=== PATIENT | male | born 1985 | race Caucasian/White ===

== ENCOUNTER 2017-07-15 20:19 | Inpatient (IN) | payer OTHER ==
[~2017-07-15] VITALS: Ht 190.5 cm; Wt 124.0 kg
--- NOTE | 2017-07-15 20:25 | ED CARDIAC/CP/PALPITATIONS ---
History of Present Illness General Chief Complaint: Palpitations Stated Complaint: PALPATATIONS Source: patient Exam Limitations: no limitations Vital Signs & Intake/Output Vital Signs & Intake/Output Vital Signs Date Time Temp Pulse Resp B/P B/P Pulse O2 O2 Flow FiO2 Mean Ox Delivery Rate 07/16 0257 97.4 90 18 111/71 98 Room Air 07/15 2154 105 119/80 07/15 2133 97.7 101 20 118/81 97 Room Air 07/15 2131 110 164/103 07/15 2024 102 22 164/103 ED Intake and Output 07/16 0000 07/15 1200 Intake Total 1000 Output Total Balance 1000 Intake, IV 1000 Patient 275 lb Weight Weight Reported by Patient Measurement Method Allergies Coded Allergies: Penicillins (GI 07/15/17) nut - unspecified (HIVES 07/15/17) Reconcile Medications Escitalopram Oxalate 20 MG TABLET 1 TAB PO DAILY DEPRESSION (Reported) Ferrous Sulfate 325 MG (65 MG IRON) TABLET 1 TAB PO BID SUPPLEMENT (Reported) Metoprolol Succ XL (Toprol XL) 25 MG TAB 1 TAB PO DAILY heart . Pantoprazole Sodium 40 MG TABLET.DR 1 TAB PO BID ULCER (Reported) Triage Nurses Notes Reviewed? yes Onset: Abrupt Duration: day(s): (1) Timing: multiple episodes today Location: central Activities at Onset: WAS AT WORK, DRINKING ENERGY DRINK Associated Symptoms: PALPITATIONS HPI: This is a 32-year-old male with history of significant GI bleeding requiring a previous Billroth II procedure approximately 6 years ago who presents to the ER with chief complaint of palpitations that he noticed starting this morning on and off all day long. He feels it more with exerting himself and inability. No chest pain or shortness of breath. He has never had symptoms like this before. 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 During his working stretches he drinks about 5-6 of them per day. He also admits to drinking 4 beers last night. He drinks about 2 times per week about 4-6 beers. Of note he did takes dialysis last night for the first time. He did not have palpitations throughout the night. No history of previous A. fib or dysrhythmias. He is on no beta keri medications. Patient takes Protonix, iron and Lexapro at home. His last GI bleed was June 2015 when he was determined to have a anastomotic ulcer bleed. He is monitored by endoscopy last endoscopy was in June of last year. No family history of cardiac diseases. Patient follows up with a clinic outside of [facility]. Patient denies any tobacco or cocaine abuse. Past History Travel History Traveled to [place] past 21 day No Medical History Any Pertinent Medical History? see below for history Gastrointestinal: GI BLEEDING Surgical History Surgical History: BILROTH 2 (6 YEARS AGO) Psychosocial History Tobacco Use: Never used ETOH Use: heavy use Illicit Drug Use: denies illicit drug use Family History Hx Contributory? No Review of Systems Review of Systems Constitutional: Denies: chills, fever. EENTM: Reports: no symptoms. Respiratory: Denies: cough, short of breath, sputum production. Cardiovascular: Reports: palpitations. Denies: chest pain, peripheral edema, syncope. GI: Denies: abdominal pain. Genitourinary: Denies: discharge, dysuria. Musculoskeletal: Reports: no symptoms. Skin: Reports: no symptoms. Neurological/Psychological: Reports: no symptoms. Hematologic/Endocrine: Denies: bruising, bleeding. Immunologic/Allergic: Reports: no symptoms. All Other Systems: Reviewed and Negative Physical Exam Physical Exam General Appearance: well developed/nourished, alert, awake, anxious, mild distress Head: atraumatic, normal appearance Eyes: Bilateral: normal appearance, PERRL, EOMI. Ears, Nose, Throat: normal pharynx, hearing grossly normal Neck: normal inspection, supple, full range of motion Respiratory: normal breath sounds, chest non-tender, no respiratory distress Cardiovascular: tachycardia, irregularly irregular Peripheral Pulses: 2+ radial (R), 2+ radial (L) Gastrointestinal: normal bowel sounds, soft, non-tender Back: normal inspection, normal range of motion Extremities: normal inspection, normal capillary refill, normal range of motion, no edema Neurologic/Psych: no motor/sensory deficits, awake, alert, oriented x 3, normal gait, normal mood/affect Skin: intact, normal color, warm/dry Core Measures ACS in differential dx? Yes CVA/TIA Diagnosis No Sepsis Present: No Sepsis Focused Exam Completed? No Progress Differential Diagnosis: atrial fibrillation, PSVT, pulmonary embolism, PVCs/PACs Plan of Care: Orders Procedure Date/time Status Regular Diet 07/16 B Active TROPONIN LEVEL 07/16 0800 Active EKG 07/16 0800 Active CBC WITHOUT DIFFERENTIAL 07/16 0600 Active BASIC ELECTROLYTES PLUS BUN&CR 07/16 0600 Active TROPONIN LEVEL 07/16 0200 Complete EKG 07/16 0200 Active Pathway - chart 07/16 0012 Active House Staff 07/16 0012 Active Patient Data 07/16 0012 Active Code Status 07/16 0012 Active URINE DRUGS OF ABUSE 07/16 0008 Active VTE Mechanical Prophylaxis 07/16 UNK Active Vital Signs 07/16 UNK Active Telemetry/Driver Operator 07/16 UNK Active Intake & Output 07/16 UNK Active Activity/Ambulation 07/16 UNK Active ECHOCARDIOGRAM 07/16 UNK Active Patient Data 07/15 2225 Active ED Holding Orders 07/15 2203 Active Admit to inpatient 07/15 220 Active Vital Signs 07/15 2203 Active Code Status 07/15 2203 Complete Intake & Output 07/15 2132 Active THYROID STIMULATING HORMONE 07/15 204 Complete MAGNESIUM 07/15 2039 Complete FREE T4 07/15 2039 Complete D-DIMER 07/15 2039 Complete MISTAKE 07/15 2023 Active Telemetry/Driver Operator 07/15 2023 Active TROPONIN LEVEL 07/15 2023 Complete PARTIAL THROMBOPLASTIN TIME 07/15 2023 Complete PROTHROMBIN TIME 07/15 2023 Complete COMPREHENSIVE METABOLIC PANEL 07/15 2023 Complete CBC WITHOUT DIFFERENTIAL 07/15 2023 Complete TYPE & SCREEN (NOT X-MATCH) 07/15 2023 Complete EKG 07/15 2022 Active Current Medications Sig/Dale Start time Last Medication Dose Stop Time Status Admin Escitalopram Oxalate 20 MG DAILY 07/16 1000 AC (Lexapro) Ferrous Sulfate 325 MG BID 07/16 1000 AC (Feosol) Omeprazole 40 MG DAILY AC 07/16 0700 AC (Prilosec) Acetaminophen 650 MG Q6P PRN 07/16 0015 AC (Tylenol) Ondansetron HCl 4 MG Q6P PRN 07/16 0015 AC (Zofran) Diltiazem HCl 125 MG Q24H 07/15 2245 AC 07/15 (Cardizem DRIP) 2316 Sodium Chloride 100 ML (Normal Saline 0.9%) Laboratory Tests 07/16/17 0215: Troponin I < 0.01 07/15/17 2040: Anion Gap 16, Estimated GFR > 60, BUN/Creatinine Ratio 23.6, Glucose 70, Calcium 9.5, Magnesium 1.8, Total Bilirubin 0.6, AST 25, ALT 36, Alkaline Phosphatase 61 , Troponin I < 0.01, Total Protein 7.1, Albumin 4.3, Globulin 2.8, Albumin/ Globulin Ratio 1.5, TSH 2.660, Free T4 1.42, PT 11.1, INR 1.06, APTT 30, D-Dimer High Sensitivty < 200, CBC w Diff MAN DIFF ORDERED, RBC 5.53, MCV 88.5, MCH 29.4 , MCHC 33.2, RDW 13.2, MPV 8.9, Gran % 38.5 L, Lymphocytes % 40.5, Monocytes % 9.7 H, Eosinophils % 10.8 H, Basophils % 0.5, Absolute Granulocytes 3.4, Segmented Neutrophils 37 L, Absolute Lymphocytes 3.5 H, Lymphocytes 49, Monocytes 7, Absolute Monocytes 0.9 H, Eosinophils 5, Absolute Eosinophils 0.9, Basophils 2, Absolute Basophils 0, Platelet Estimate ADEQUATE, Normal RBC Morphology N 07/15/172034: D-Dimer High Sensitivty Cancelled 07/15/172033: Magnesium Cancelled, TSH Cancelled, Free T4 Cancelled D/W DR FERGUSON. LOW CHADS SCORE BUT RISK FOR ANTICOAGULATION. PATIENT PLACED ON CARDIZEM DRIP, ADMITTED TO TELEMETRY. Diagnostic Imaging: Viewed by Me: Radiology Read. Discussed w/RAD: Radiology Read. CXR Impression: PATIENT: GREYSON FINNEY PRESENT AGE: 32 PATIENT ACCOUNT NO: [id number] : 84 LOCATION: [facility] ORDERING PHYSICIAN: Christa Warren MD SERVICE DATE: 07/15/17 EXAM TYPE: RAD - XRY-CHEST XRAY , TWO VIEWS EXAMINATION: XR CHEST CLINICAL INFORMATION: New onset of atrial fibrillation. Evaluate for cardiomegaly. COMPARISON: None TECHNIQUE: 2 views of the chest were obtained. FINDINGS: The lungs are well-inflated and clear. Trachea is midline in position. No evidence of pulmonary edema, focal consolidation or pleural effusion. The cardiomediastinal silhouette and pulmonary david have normal size and contour. There is no evidence of left atrial enlargement. Bones of the examined thorax are intact. The upper abdomen is unremarkable. IMPRESSION: 1. Lungs are normal. 2. No evidence of cardiomegaly. DICTATED BY: Juan Toney MD DATE/TIME DICTATED:07/15/172226 SIX PACK LOADER OPERATOR:ESTELA DATE/TIME TRANSCRIBED:07/15/172226 CONFIDENTIAL, DO NOT COPY WITHOUT APPROPRIATE AUTHORIZATION. <Electronically signed in Other Vendor System> SIGNED BY: Juan Toney MD 07/15/172232 Initial ED EKG: AFIB (RVR) Rhythm Strip: atrial fibrillation Departure Departure Time of Disposition: 2203 Disposition: STILL A PATIENT Condition: Stable Clinical Impression Primary Impression: New onset a-fib Referrals: Unknown (PCP/Family) Departure Forms: Customer Survey General Discharge Information Prescriptions: Current Visit Scripts Metoprolol Succ XL (Toprol XL) 1 TAB PO DAILY #30 TAB . Admission Note Spoke With: Beka Ferguson MD Documentation of Exam: Documentation of any treatments & extenuating circumstances including Concerns Regarding Discharge (functional status, medication knowledge or non-compliance, living conditions, etc.) that warrant an admission rather than observation: [ TELE MONITOR, RATE CONTROL IV CARDIZEM, SERIAL EKG/TROPONIN, CARDIOLOGY CONSULTATION] Critical Care Note Critical Care Note Critical Care Time: 30-74 min
[2017-07-15 20:47] LABS: ABSOLUTE BASOPHIL COUNT 0 /CUMM (0.0-0.2); ABSOLUTE EOSINOPHIL COUNT 0.9 /CUMM (0.0-0.7); ABSOLUTE GRANULOCYTE CT 3.4 /CUMM (1.4-6.5); ABSOLUTE LYMPH COUNT 3.5 /CUMM (1.2-3.4); ABSOLUTE MONOCYTE COUNT 0.9 /CUMM (0.10-0.60); BASOPHIL % 0.5 % (0.0-2.0); EOSINOPHIL % 10.8 % (0-5); GRANULOCYTE % 38.5 % (42.2-75.2); HEMATOCRIT 48.9 % (42-52); MEAN CORPUSCULAR HGB 29.4 PG (27.0-31.0); MEAN CORPUSCULAR HGB CONC 33.2 G/DL (33.0-37.0); MEAN CORPUSCULAR VOLUME 88.5 FL (80.0-94.0); MEAN PLATELET VOLUME 8.9 FL (7.4-10.4); PLATELET COUNT 268 /CUMM (130-400); RBC DISTRIBUTION WIDTH 13.2 % (11.5-14.5); RED BLOOD CELL CT 5.53 /CUMM (4.70-6.10); WHITE BLOOD CELL COUNT 8.7 /CUMM (4.8-10.8)
[2017-07-15 21:02] LABS: PT 11.1 SEC (9.4-12.5); PTT 30 SEC (25-37)
[2017-07-15] MEDS ORDERED: FERROUS SULFAT325 M3 PO (21:36)
[2017-07-15] MEDS ORDERED: PANTOPRAZOLE SO40 M1 PO (21:36)
[2017-07-15] MEDS ORDERED: ESCITALOPRAM OX20 MG PO (21:37)
--- NOTE | 2017-07-15 22:33 | RADIOLOGY REPORT ---
EXAMINATION: XR CHEST CLINICAL INFORMATION: New onset of atrial fibrillation. Evaluate for cardiomegaly. COMPARISON: None TECHNIQUE: 2 views of the chest were obtained. FINDINGS: The lungs are well-inflated and clear. Trachea is midline in position. No evidence of pulmonary edema, focal consolidation or pleural effusion. The cardiomediastinal silhouette and pulmonary david have normal size and contour. There is no evidence of left atrial enlargement. Bones of the examined thorax are intact. The upper abdomen is unremarkable. IMPRESSION: 1. Lungs are normal. 2. No evidence of cardiomegaly.
--- NOTE | 2017-07-15 22:59 | History & Physical ---
Fritz AVITIA,[facility] 07/15/17 5608: General Information and HPI MD Statement: I have seen and personally examined GREYSON MORALES and documented this H&P. The patient is a 32 year old M who presented with a patient stated chief complaint of [palpitations]. Source of Information: patient Exam Limitations: no limitations History of Present Illness: Mr. Morales is a 52-year-old gentleman with past medical history significant for depression, Billroth II procedure(approximately 6 years ago) and GI bleeding from anastomotic site requiring ICU admission 3 times in the past(last GI bleed was in July 2016) now presents with palpitations starting this morning. According to the patient, he was in his usual state of health until this morning when after having 1 energy drink he started having palpitations, which lasted for an hour and resolved on its own. 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 He had to rib puller, attach himself to the alarm security or surveillance monitor and was found to be in atrial fibrillation with heart rate in 180s and he drove himself to the hospital. Denies any chest pain, shortness of breath, cough, sputum production, previous episodes of papitations, use of herbal teas or meds, recent illness or recent change in medications except for taking Cialis last night for side effects from taking SNRI( He was started on Lexapro 1.5 months ago). States he drinks around 5-6 energy drinks every day, today he had only 1. Admits to drinking alcohol 2-3 times per week, last drink was 4-5 drinks yesterday night. He also drank couple of caffienated sodas with the dinner last night. Past History Travel History Traveled to [place] past 21 day No Medical History Neurological: NONE EENT: NONE Cardiovascular: NONE Respiratory: NONE Gastrointestinal: GI BLEEDING ULCERS Hepatic: NONE Renal: NONE Musculoskeletal: NONE Psychiatric: depression Endocrine: NONE Surgical History Surgical History: BILROTH 2 (6 YEARS AGO) Past Family/Social History Psychosocial History Where do you live? Home Who Do You Live With? spouse Services at Home: None Smoking Status: Never Smoked ETOH Use: heavy use Illicit Drug Use: denies illicit drug use Functional Ability ADLs Independent: dressing, eating, toileting, bathing. Ambulation: independent IADLs Independent: shopping, housework, finances, food prep, telephone, transportation , medication admin. Review of Systems Review of Systems Constitutional: Reports: no symptoms. EENTM: Reports: no symptoms. Cardiovascular: Reports: palpitations. Respiratory: Reports: no symptoms. GI: Reports: no symptoms. Genitourinary: Reports: no symptoms. Musculoskeletal: Reports: no symptoms. Skin: Reports: no symptoms. Neurological/Psychological: Reports: no symptoms. Hematologic/Endocrine: Reports: no symptoms. Immunologic/Allergic: Reports: no symptoms. All Other Systems: Reviewed and Negative Exam & Diagnostic Data Last 24 Hrs of Vital Signs/I&O Vital Signs Date Time Temp Pulse Resp B/P B/P Pulse O2 O2 Flow FiO2 Mean Ox Delivery Rate 07/16 0257 97.4 90 18 111/71 98 Room Air 07/15 2154 105 119/80 07/15 2133 97.7 101 20 118/81 97 Room Air 07/15 2131 110 164/103 07/15 2024 102 22 164/103 Intake & Output 07/16 0800 07/16 0000 07/15 1600 Intake Total 1000 Output Total Balance 1000 Intake, IV 1000 Patient 275 lb Weight Weight Reported by Patient Measurement Method Physical Exam General Appearance Alert, Oriented X3, Cooperative, No Acute Distress Skin No Rashes, No Breakdown HEENT Atraumatic, PERRLA, EOMI, Mucous Membr. moist/pink Cardiovascular Regular Rate, Normal S1, Normal S2 Lungs Clear to Auscultation, Normal Air Movement Abdomen Normal Bowel Sounds, Soft, No Tenderness Extremities No Clubbing, No Cyanosis, No Edema, Normal Pulses Last 24 Hrs of Labs/Monico: Laboratory Tests 07/16/17 0215: Troponin I < 0.01 07/15/172039: Anion Gap 16, Estimated GFR > 60, BUN/Creatinine Ratio 23.6, Glucose 70, Calcium 9.5, Magnesium 1.8, Total Bilirubin 0.6, AST 25, ALT 36, Alkaline Phosphatase 61 , Troponin I < 0.01, Total Protein 7.1, Albumin 4.3, Globulin 2.8, Albumin/ Globulin Ratio 1.5, TSH 2.660, Free T4 1.42, PT 11.1, INR 1.06, APTT 30, D-Dimer High Sensitivty < 200, CBC w Diff MAN DIFF ORDERED, RBC 5.53, MCV 88.5, MCH 29.4 , MCHC 33.2, RDW 13.2, MPV 8.9, Gran % 38.5 L, Lymphocytes % 40.5, Monocytes % 9.7 H, Eosinophils % 10.8 H, Basophils % 0.5, Absolute Granulocytes 3.4, Segmented Neutrophils 37 L, Absolute Lymphocytes 3.5 H, Lymphocytes 49, Monocytes 7, Absolute Monocytes 0.9 H, Eosinophils 5, Absolute Eosinophils 0.9, Basophils 2, Absolute Basophils 0, Platelet Estimate ADEQUATE, Normal RBC Morphology N 07/15/172034: D-Dimer High Sensitivty Cancelled 07/15/172033: Magnesium Cancelled, TSH Cancelled, Free T4 Cancelled Diagnostic Data EKG Results Atrial fibrillation Heart Rate 144 QTc 477 CXR Results IMPRESSION: 1. Lungs are normal. 2. No evidence of cardiomegaly. Assessment/Plan Assessment: Mr. Morales is a 52-year-old gentleman with past medical history significant for depression, Billroth II procedure(approximately 6 years ago) and GI bleeding from anastomotic site requiring ICU admission 3 times in the past(last GI bleed was in July 2016) now presents with palpitations starting this morning. A/P; 1. New Onset atrial fibrillation; - Will admit the patient to telemetry for - Continue IV Cardizem, titrate according to the heart rate. - Troponins and EKG 3. - Echocardiogram if okay with cardiology. - Patient has a VASILE VASC score of 0, will not require anticoagulation. Also given the history of significant GI bleeding with white starting the patient on any anticoagulation. 2. Depression; - Continue Lexapro. DVT prophylaxis; ALPS Patient is full code As Ranked By This Provider Problem List: 1. New onset a-fib Core Measures/Misc (03/05) Acute Coronary Syndrome ACS Diagnosis: No Congestive Heart Failure Congestive Heart Failure Diagnosis No Cerebrovascular Accident CVA/TIA Diagnosis: No VTE (View Protocol) VTE Risk Factors No risk factors No Mechanical VTE Prophylaxis d/t N/A MechProphylax Ordered No VTE Pharm Prophylaxis d/t Medical Contraindication Sepsis (View protocol) Sepsis Present: No Mio Rosario MD 07/16/17 0250: General Information and HPI Allergies/Medications Allergies: Coded Allergies: Penicillins (GI 07/15/17) nut - unspecified (HIVES 07/15/17) Resident Review Statement Resident Statement: examined this patient, discussed with geotechnical intern, agreed with geotechnical intern Other Findings: This is a 32-year-old male past medical history significant for depression, GI bleed 3 requiring ICU stay, status post Billroth II anastomosis out 6 years ago , last GI bleed in July 2015, who comes in for chief complaint of palpitation. Patient states he first noted a sensation this a.m. after he drank 1-1/2 servings of [employer] energy drink. About an hour later the sensation spontaneously went away. The rest the day was largely uneventful he was sitting in class and did not notice any palpitations. 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 He subsequently became uncomfortable enough that he had to rib puller. He attached himself to his alarm security or surveillance monitor and found himself in atrial fibrillation with a rate up to 180. He denies any chest pain, shortness of breath, loss of consciousness, dizziness, nausea or any other symptoms associated with the palpitations. He has never felt this sensation before. 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 He consumed about 4-5 beers the night before. He is a social drinker about 2-3 times a week. He also drank caffeinted soda intermittently during the day. He has recently started new medications. Lexapro was initiated about 4-6 weeks ago. He took sialoliths for the first time the night before. Denies any adverse symptoms such as chest pain, dizziness, or palpitations associated with the medication. No other change in regimen. Vitals: 97.7, heart rate 110-101, respiratory rate 22-20, blood pressure 160/103 to 118/81, 97% on room air. C BC: White count only 8.7 but eosinophilia up to 10.8. Negative d-dimer. Sodium 146. BUN 26. Thyroid normal. Negative troponin. Chest x-ray shows normal lungs without cardiomegaly. EKG: A. fib with rate 144, no ST or T-wave changes noted. QTc 477 Assessment: This is a 32-year-old male with past medical history significant for GI bleed status post Billroth II anastomosis about 6 years ago, last bleed due to anastomotic ulcer in July 2015, who comes in for chief complaint of palpitations. In ED he is found to be in new onset atrial fibrillation with rapid ventricular response. Given no cardiac history or previous episodes of palpitation, suspect that this is secondary to various substances that patient is consuming including large amounts of energy drinks, soda, alcohol. Given that he has persistently remained in AFIB RVR since 7pm will admit pt to telemetry service for further management. PLAN: New onset Afib with RVR: Pt has [id number] score of 0 which places him in lowest category for risk of CVA. Additionally given his significant hx of life threatening GI bleed he is not an ideal candidate for AC. As such will currently hold off. In ED he was given push of metoprolol and then started on Cardizem drip for rate control. TSH WNL. Unsure if the Lexapro or Cialis had any impact in precipitating a.fib. * Continue cardizem drip * EKG/Trop * Appreciate cardio consult * Echocardiogram * NO AC at this time. Pt is only on ALPS. * Utox Hx GI bleed: * Con't protonix Depression: * Con't SSRI Beka Arauz MD 07/16/17 1307: General Information and HPI Allergies/Medications Home Med list Escitalopram Oxalate 20 MG TABLET 1 TAB PO DAILY DEPRESSION (Reported) Ferrous Sulfate 325 MG (65 MG IRON) TABLET 1 TAB PO BID SUPPLEMENT (Reported) Metoprolol Succ XL (Toprol XL) 25 MG TAB 1 TAB PO DAILY heart . 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 He also recently took Cialis for the first time. Ventricular rate was brought under control on diltiazem, and he converted to sinus rhythm. He is now in sinus rhythm, and he is asymptomatic. EKG tracings are independently reviewed. EKG from 07/15/17 reveals atrial fibrillation with ventricular response of 144 EKG from today reveals normal sinus rhythm at 73, normal EKG Plain: * Toprol-XL 25 mg daily * Discharge to home * Follow up with me within one week * Call with further palpitations or other symptoms * Limited caffeine and alcohol intake * Echocardiogram to be arranged as outpatient
[2017-07-16 07:10] LABS: ABSOLUTE BASOPHIL COUNT 0 /CUMM (0.0-0.2); ABSOLUTE EOSINOPHIL COUNT 0.8 /CUMM (0.0-0.7); ABSOLUTE GRANULOCYTE CT 3.2 /CUMM (1.4-6.5); ABSOLUTE LYMPH COUNT 2.7 /CUMM (1.2-3.4); ABSOLUTE MONOCYTE COUNT 0.8 /CUMM (0.10-0.60); BASOPHIL % 0.6 % (0.0-2.0); GRANULOCYTE % 42.1 % (42.2-75.2); HEMATOCRIT 49.3 % (42-52); MEAN CORPUSCULAR HGB 29.4 PG (27.0-31.0); MEAN CORPUSCULAR HGB CONC 33.1 G/DL (33.0-37.0); MEAN CORPUSCULAR VOLUME 88.7 FL (80.0-94.0); MEAN PLATELET VOLUME 8.8 FL (7.4-10.4); PLATELET COUNT 253 /CUMM (130-400); RBC DISTRIBUTION WIDTH 13.7 % (11.5-14.5); RED BLOOD CELL CT 5.56 /CUMM (4.70-6.10); WHITE BLOOD CELL COUNT 7.5 /CUMM (4.8-10.8)
--- NOTE | 2017-07-16 09:05 | PN- Housestaff ---
Subjective Follow-up For: Atrial fibrillation with rapid ventricular rate Complaints: no complaints Tele-Events Since Last Visit: Heart rate 80 Subjective: Patient was seen at bedside. No overnight events. He is eager to go home today. He offers no complaints. He denies chest pain, chest pressure, nausea, vomiting, abdominal pain. Review of Systems Constitutional: Reports: no symptoms. Cardiovascular: Reports: no symptoms. Respiratory: Reports: no symptoms. Gastrointestinal: Reports: no symptoms. Genitourinary: Reports: no symptoms. Objective Last 24 Hrs of Vital Signs/I&O Vital Signs Date Time Temp Pulse Resp B/P B/P Pulse O2 O2 Flow FiO2 Mean Ox Delivery Rate 07/16 0649 98.2 77 18 116/75 98 Room Air 07/16 0257 97.4 90 18 111/71 98 Room Air 07/15 2154 105 119/80 07/15 2133 97.7 101 20 118/81 97 Room Air 07/15 2131 110 164/103 07/155 102 22 164/103 Intake & Output 07/16 1600 07/16 0800 07/16 0000 Intake Total 1000 Output Total Balance 1000 Intake, IV 1000 Patient 273 lb 275 lb Weight Weight Reported by Patient Reported by Patient Measurement Method Physical Exam General Appearance: Alert, Oriented X3, Cooperative Cardiovascular: Normal S1, Normal S2, No Murmurs Lungs: Normal Air Movement Abdomen: Soft, No Tenderness, No Hepatospenomegaly Current Medications: Current Medications Sig/Dale Start time Last Medication Dose Route Stop Time Status Admin Acetaminophen 650 MG Q6P PRN 07/16 0015 AC PO Diltiazem HCl 125 MG Q24H 07/15 2245 DC 07/15 Sodium Chloride 100 ML IV 2316 Escitalopram Oxalate 20 MG DAILY 07/16 1000 AC 07/16 PO 1131 Ferrous Sulfate 325 MG BID 07/16 1000 AC 07/16 PO 1131 Metoprolol Tartrate 0 .STK-MED ONE 07/15 2126 DC IV Metoprolol Tartrate 5 MG ONCE ONE 07/15 2100 DC 07/15 IV 07/15 2100 213 Omeprazole 0 .STK-MED ONE 07/16 0706 DC PO Omeprazole 40 MG DAILY AC 07/16 0700 AC 07/16 PO 0702 Ondansetron HCl 4 MG Q6P PRN 07/16 0015 AC IV Sodium Chloride 1,000 ML BOLUS ONE 07/15 2100 DC 07/15 IV 07/15 Last 24 Hrs of Lab/Monico Results Last 24 Hrs of Labs/Mics: Laboratory Tests 07/16/17 0800: Troponin I Cancelled 07/16/17 0658: Anion Gap 11, Estimated GFR > 60, BUN/Creatinine Ratio 23.3, Troponin I < 0.01, CBC w Diff NO MAN DIFF REQ, RBC 5.56, MCV 88.7, MCH 29.4, MCHC 33.1, RDW 13.7, MPV 8.8, Gran % 42.1 L, Lymphocytes % 35.8, Monocytes % 10.5 H, Eosinophils % 11.0 H, Basophils % 0.6, Absolute Granulocytes 3.2, Absolute Lymphocytes 2.7, Absolute Monocytes 0.8 H, Absolute Eosinophils 0.8, Absolute Basophils 0 07/16/175: Troponin I < 0.01 07/15/172039: Anion Gap 16, Estimated GFR > 60, BUN/Creatinine Ratio 23.6, Glucose 70, Calcium 9.5, Magnesium 1.8, Total Bilirubin 0.6, AST 25, ALT 36, Alkaline Phosphatase 61 , Troponin I < 0.01, Total Protein 7.1, Albumin 4.3, Globulin 2.8, Albumin/ Globulin Ratio 1.5, TSH 2.660, Free T4 1.42, PT 11.1, INR 1.06, APTT 30, D-Dimer High Sensitivty < 200, CBC w Diff MAN DIFF ORDERED, RBC 5.53, MCV 88.5, MCH 29.4 , MCHC 33.2, RDW 13.2, MPV 8.9, Gran % 38.5 L, Lymphocytes % 40.5, Monocytes % 9.7 H, Eosinophils % 10.8 H, Basophils % 0.5, Absolute Granulocytes 3.4, Segmented Neutrophils 37 L, Absolute Lymphocytes 3.5 H, Lymphocytes 49, Monocytes 7, Absolute Monocytes 0.9 H, Eosinophils 5, Absolute Eosinophils 0.9, Basophils 2, Absolute Basophils 0, Platelet Estimate ADEQUATE, Normal RBC Morphology N 07/15/172034: D-Dimer High Sensitivty Cancelled 07/15/172033: Magnesium Cancelled, TSH Cancelled, Free T4 Cancelled Assessment/Plan Assessment: This is a 32-year-old male with past medical history significant for GI bleed status post Billroth II anastomosis about 6 years ago, last bleed due to anastomotic ulcer in July 2015, who comes in for chief complaint of palpitations. In ED he is found to be in new onset atrial fibrillation with rapid ventricular response. Given no cardiac history or previous episodes of palpitation, suspect that this is secondary to various substances that patient is consuming including large amounts of energy drinks, soda, alcohol. Given that he has persistently remained in AFIB RVR since 7pm will admit pt to telemetry service for further management. PLAN: New onset Afib with RVR: Pt has [id number] score of 0 which places him in lowest category for risk of CVA. Additionally given his significant hx of life threatening GI bleed he is not an ideal candidate for AC. TSH WNL. Unsure if the Lexapro or Cialis had any impact in precipitating a.fib. Patient converted back to sinus rhythm with a heart rate of 70. Cardizem drip was discontinued. 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 Hx GI bleed: * Con't protonix Depression: * Con't SSRI Problem List: 1. New onset a-fib Pain Ratin Pain Location: NONE Pain Goal: Remain pain free Pain Plan: TYLENOL Tomorrow's Labs & Rationales: NONE
--- NOTE | 2017-07-16 16:43 | Patient Discharge Instructions ---
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 within 1 week of discharge Please follow with your primary care physician within one to 2 weeks of discharge Diet Continue normal diet: Yes Recommended Diet: Regular Activity Full Activity/No Limits: No Activity Self Limited: Yes Acute Coronary Syndrome Inclusion Criteria At DC or during hospital stay patient has or had the following: ACS DIAGNOSIS No Discharge Core Measures Meds if any: Prescribed or Continued at Discharge Meds if any: NOT Prescribed or Continued at Discharge Congestive Heart Failure Inclusion Criteria At DC or during hospital stay patient has or had the following: CHF DIAGNOSIS No Discharge Core Measures Meds if any: Prescribed or Continued at Discharge Meds if any: NOT Prescribed or Continued at Discharge Cerebrovascular accident Inclusion Criteria At DC or during hospital stay patient has or had the following: CVA/TIA Diagnosis No Discharge Core Measures Meds if any: Prescribed or Continued at Discharge Meds if any: NOT Prescribed or Continued at Discharge Venous thromboembolism Inclusion Criteria VTE Diagnosis No VTE Type NONE VTE Confirmed by (Test) NONE Discharge Core Measures - Per Current guidelines, there needs to be overlap - treatment for the first 5 days of Warfarin therapy. - If discharged on Warfarin prior to 5 days of - overlap therapy, the patient will need to be - assessed for post discharge needs including - *Post discharge parental anticoagulation - *Warfarin and/or parental anticoagulation education - *Follow up date to check INR post discharge At least 5 days overlap therapy as Inpatient No Meds if any: Prescribed or Continued at Discharge Note: Overlap Therapy is Warfarin and Anticoagulant Meds if any: NOT Prescribed or Continued at Discharge
[2017-07-16] MEDS ORDERED: TOPROL XL25 M1 PO ×2 (16:44→16:53)
[2017-07-16 17:08] VITALS: BP 124/76
== END 2017-07-16 17:20 | DRG 310 ==
LOC: ERH 20:19 → ERHI 22:04
PROVIDERS: Emergency Medicine; Student in an Organized Health Care Education/Training Program
DX: I48.91 Unspecified atrial fibrillation (principal); F32.9 Major depressive disorder, single episode, unspecified
CPT/HCPCS: ERO; 71046; 80307; 82436; 93005; 93010; J2405